=== PATIENT | female | born 1975 | race Two or more races ===

== ENCOUNTER 2018-03-08 01:30 | Outpatient (CLI) | payer OTHER | END 2018-03-08 23:59 | disposition home or self-care (01) | LOC: DIABETIC 01:30 | PROVIDERS: ATTEND Family Medicine | DX: Z71.3 Dietary counseling and surveillance (principal); M32.14 Glomerular disease in systemic lupus erythematosus; E66.09 Other obesity due to excess calories; Z68.39 Body mass index [BMI] 39.0-39.9, adult | CPT/HCPCS: 97802 ==